=== PATIENT | male | born 1940 | race African-American/Black ===

== ENCOUNTER 2017-07-05 16:05 | Inpatient (IN) | payer MEDICARE, MEDICAID ==
[~2017-07-05 16:05] MED LIST: ISOVUE-370 76%-LOCM 1 ML ONE
[2017-07-05 16:35] LABS: #Lymphocytes 0.3 thou/uL (1.20-3.40); #Monocytes 0.2 thou/uL (0.11-0.59); #Neutrophils 5.9 thou/uL (1.40-6.50); %Eosinophils 0.4 % (0.0-10.0); %Monocytes 3.5 % (0.0-10.0); %Neutrophils 91.1 % (42.0-75.0); Hemoglobin 15.2 g/dL (14.0-18.0); Mean Corpuscular HGB CONC 30.8 g/dL (32.0-36.0); Mean Corpuscular Hemoglobin 24.6 pg (27.0-31.0); Mean Platelet Volume 10.2 fL (7.4-10.4); Platelet Count 204 thou/uL (130-400); Red Blood Cell (RBC) Count 6.18 mill/uL (4.70-6.10); White Blood Cell (WBC) Count 6.5 thou/uL (4.8-10.8)
[2017-07-05 16:39] LABS: Bilirubin Negative (Negative); Blood, Urine Moderate (Negative); Clarity CLEAR (Clear); Glucose, Urine (Dipstick) 250 mg/dL (Negative); Leukocyte Negative (Negative); Nitrite Negative (Negative); Protein, Urine (Dipstick) Trace mg/dL (Neg-Trace); Specific Gravity, Urine 1.014 (1.002-1.036); Urobilinogen 0.2 mg/dL (0.2-1.0)
[2017-07-05 16:41] LABS: Bacteria/HPF None Seen HPF (None Seen); Hyaline Casts/LPF 0-3 HYALINE CAST LPF (0-3 Hyaline); Pathc Cast-AUWi Flag 0.13 (0-2.49); RBC/HPF GREATER THAN 50-TNTC HPF (0-3); Squamous Epithelial 0-3 HPF (0-3); WBC/HPF 0-3 HPF (0-3)
[2017-07-05 16:44] LABS: Actual Bicarbonate (HCO3a) 25.9 mEq/L (22-26); CO2 Tension 51.9 mmHg (35.0-45.0); Hematocrit-ABG 48.7 % (42.0-52.0); Hemoglobin (Hb) 14.2 g/dL (14.0-18.0); O2 Tension (PaO2) 183.4 mmHg (80.0-100.0); pH, Arterial 7.32 (7.35-7.45)
[2017-07-05 16:45] LABS: ALV-art Gradient 108.225 (0-20); Analyzer IN Cardio ER; Calcium, Ionized 1.2 mmol/L (1.12-1.30); Puncture Site L.R.
[2017-07-05 16:49] LABS: Amphetamine Not Detected (NotDetected); Barbiturates Screen Not Detected (NotDetected); Benzodiazepine Screen Not Detected (NotDetected); Cocaine Metabolite Screen Not Detected (NotDetected); Medtox Control Line Valid? VALID (VALID); Medtox Reader # READER 1; Methadone Not Detected (NotDetected); Methamphetamine Not Detected (NotDetected); Opiate Screen Not Detected (NotDetected); Oxycodone Screen Not Detected (NotDetected); Phencyclidine (PCP) Not Detected (NotDetected); THC/Cannabinoid Screen Not Detected (NotDetected); Tricyclic Screen Not Detected (NotDetected)
--- NOTE | 2017-07-05 16:51 | CT ---
NONCONTRAST CT HEAD: Date: 07-05-17 History: Trauma. Patient found down for unknown reason. Comparison: None available. FINDINGS: There is a large area of increased density seen in the cerebellar hemispheres bilaterally, eccentrica lly located to the left measuring 6.5 cm transverse x 4.1 cm AP. This increased density also extends into the region of the fourth ventricle as well as the third ventricle and in the dependent portion o f the occipital horn of the left lateral ventricle consistent with intraventricular extension of hemo rrhage. There is adjacent decreased density surrounding the hemorrhage consistent with edema with mas s effect on the cerebellar folia. In addition, the basilar cisterns are unable to be visualized sugge sting transtentorial herniation. There is also diminished attenuation of the sergio which could be rela surya to developing infarction involving the sergio. There is also mass effect on the mid brain and medul lae due to the hemorrhage and mass effect. There is increased density seen within the middle cerebral arteries bilaterally. While this is a symm etric finding, hyperdense MCA could be attributable to developing thrombus within the middle cerebral arteries although this cannot be confirmed based on this exam. There is evidence of hydrocephalus which is probably related to obstructive hydrocephalus due to hemo rrhage within the region of the fourth ventricle and well as the third ventricle. There is diminished attenuation of the periventricular white matter which is nonspecific but likely r eflective of chronic small vessel ischemic changes. Endotracheal tube is noted in place. In addition, a nasogastric tube is noted in place, but the nasog astric tube is coiled within the oropharynx. Calvarial structures appear intact and no obvious fracture is appreciated. Mucous retention cysts are present in the left maxillary antrum with mucosal thickening of the right maxillary antrum. IMPRESSION: 1. Parenchymal hemorrhage cerebellar hemispheres with intraventricular extension of the hemorrhage an d resultant obstructive hydrocephalus. In addition there is obliteration of the basilar cisterns sugg esting transtentorial herniation. 2. The sergio appears to demonstrate diminished attenuation which could be related to either infarction or developing infarction involving the sergio. In addition, there is increased density involving the m iddle cerebral arteries bilaterally. While this is a symmetric finding and likely within normal limit s for the patient, hyperdense MCA sign can be seen with thrombus within the middle cerebral arteries. Valenzuela-white differentiation in the middle cerebral artery distributions, however, is preserved. 3. Mass effect on the medulla and portion of the midbrain. 4. Above findings discussed with Dr. Aguayo in the Emergency Department on 07-05-17 at 1635 hours. C TA brain may be helpful for further evaluation. POS: [facility]
[2017-07-05 16:54] LABS: INR-International Normal Ratio 1.1; Prothrombin Time 14.3 SEC (12.0-14.7)
[2017-07-05 16:55] LABS: PTT 27.5 SEC (22.9-36.1)
[2017-07-05] MEDS ORDERED: Acetaminophen 1,000 MG in Premix Bag 1 BAG IVPB SCH (17:00)
[2017-07-05 17:04] LABS: ALT (SGPT) 10 U/L (8-55); AST (SGOT) 22 U/L (5-34); Alcohol Less than 10 mg/dL (Less than 10); Alkaline Phosphatase 78 U/L (40-150); Anion Gap 15 mmol/L (10-20); BUN (Urea Nitrogen) 12 mg/dL (8.4-25.7); CK (CPK) 311 U/L (30-200); Calc. Creatinine Clearance 0 mL/min (70-130); Calcium 8.9 mg/dL (7.8-10.44); Carbon Dioxide 22 mmol/L (23-31); Chloride 101 mmol/L (98-107); Estimated GFR-MDRD Greater than 90; Globulin 3.7 g/dL (2.4-3.5); Glucose 175 mg/dL (83-110); Lipase 4 U/L (8-78); Potassium 3.1 mmol/L (3.5-5.1); Protein, Total 7.7 g/dL (5.8-8.1); Sodium 135 mmol/L (136-145)
[2017-07-05] MEDS ORDERED: niCARdipine 20MG in NaCl 200 ML BAG IVPB PRN (17:06)
[2017-07-05] MEDS ORDERED: Labetalol HCl 100 MG/20 ML VIAL SLOW IVP PRN (17:06)
[2017-07-05] MEDS ORDERED: Ondansetron HCl/PF 4 MG/2 ML Vial IVP PRN (17:06)
[2017-07-05 17:08] LABS: Troponin I 0.033 ng/mL (< 0.028)
[2017-07-05 17:14] LABS: CKMB 6.9 ng/mL (0-6.6)
[2017-07-05] MEDS ORDERED: Sodium Chloride 0.9% 1,000 ML IV SCH (17:15)
--- NOTE | 2017-07-05 17:23 | RAD ---
PELVIS ONE VIEW: History: Trauma. 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 Mild narrowing of the pubic symphysis. Moderate deg enerative disease at both SI joints. There is contrast within the ureters bilaterally. Arambula catheter is present. There are phleboliths in the pelvis. Moderate vascular plaque of the femoral vessels. IMPRESSION: No displaced fracture of the pelvis. POS: [facility]
--- NOTE | 2017-07-05 17:28 | RAD ---
PORTABLE AP CHEST RADIOGRAPH: Date: 07-05-17 History: Patient found unresponsive. FINDINGS: Endotracheal tube is noted in place with tip overlying the T4 vertebral body, above the level of the moncho. Nasogastric tube is noted in place, the tip of which is not well seen but may actually termin ate overlying the distal esophagus. This should probably be advanced. The thoracic aorta does appear ectatic and tortuous. There is parenchymal opacity seen within the left midlung zone and left lung ba se which may be related to aspiration pneumonitis or pneumonia. The right lung is clear. Cardiac silh ouette and pulmonary vasculature are within normal limits. There is increased density overlying the r ight axillary region which has the appearance of contrast within venous structures. IMPRESSION: 1. Airspace pneumonitis versus pneumonia in the left midlung zone and left lung base. 2. Ectasia and tortuosity of the thoracic aorta. 3. Endotracheal tube noted in place and above the level of the moncho. 4. Nasogastric tube noted in place, the tip of which is not seen. The tip may terminate in the distal esophagus. Follow up views of the abdomen would be helpful for further evaluation. POS: [facility]
[2017-07-05] MEDS ORDERED: niCARdipine 20MG In NaCl 20 MG/200 ML BAG ONE (17:54)
--- NOTE | 2017-07-05 18:18 | CT ---
CTA CAROTID AND INTRACRANIAL CTA: History: Patient with intracranial hemorrhage. Technique: Contrast enhanced CTA is performed on a 3D workstation. 2D and 3D reconstructed images per formed on an independent 3D workstation. FINDINGS: Images demonstrate area of patchy density in the left upper and left lower lobes. There is calcification of the aorta. There is a nasogastric tube in place. The mid portion is coiled within the hypopharynx. The patient is intubated. The aortic arch is unremarkable. The right and left common carotid arteries are patent. There is some tortuosity in the distal right CCA. INTRACRANIAL CTA: Flow is seen in the left vertebral artery. No evidence of flow seen in the right vertebral artery mor e distally. There is minimal flow in the proximal right vertebral artery. Intracranial CTA demonstrates asymmetric blood flow and density to the right and left internal caroti d arteries. The left internal carotid artery is denser than the right. There may be a small area of f illing defect seen on the intracranial CTA in the cavernous and supraclinoid portions of the right IC A possibly representing dissection or some intraluminal clot. The ROWDY and MCA vessels are patent. Bot h right and left posterior cerebral arteries are patent. There also appears to be some heterogeneity in the intracranial portion of the left vertebral artery. This may represent minimal clot in the left vertebral artery distally as well. Extensive intracranial hemorrhage is seen. Please see accompanying CT diction of the brain. IMPRESSION: 1. No evidence of occlusion seen in the right or left ROWDY, MCA, or BRAKE RIDER vessels. There appears to be a symmetry density of the right and left distal ICAs. This may represent possible right distal ICA clot . 2. Possible subtle area of inter arterial heterogeneity in the distal left vertebral artery. This may also represent distal left vertebral clot. POS: [facility]
[2017-07-05] MEDS ORDERED: Sodium Chloride 0.9% 2,000 ML IV SCH (20:30)
[2017-07-05] MEDS ORDERED: Famotidine/PF 20 mg/2ml Vial SLOW IVP SCH (21:00)
[2017-07-05] MEDS ORDERED: Lorazepam 2 MG/ML VIAL SLOW IVP PRN (21:03)
[2017-07-05 22:15] VITALS: BP 74/57
[2017-07-05 22:24] VITALS: TEMP 92.1
[2017-07-06 00:21] VITALS: BMI 27.6
--- NOTE | 2017-07-06 02:17 | HP ---
Mr. Haas is a 77-year-old man found down today. He was down for an unknown period of time according to emergency personnel. He was a GCS of 3 at the scene according to emergency personnel and had no demonstrable neurologic function according to Eve Muniz PA-C and emergency room staff. A CT scan revealed a massive cerebellar hemorrhage extending from the cerebellar vermis into both hem ispheres with compression and hemorrhagic conversion of the medulla and brain stem. There was intrav entricular extension with hydrocephalus. IMPRESSION: Nonsurvivable cerebellar hemorrhage, presumably hypertensive. There are clearly no surg ical strategies here and I believe that given the futility of treatment, ventriculostomy is not warra nted. The patient was moved up to the ICU on a ventilator to give his family time to acclimate to the situa tion. He has gradually become hypotensive and I have discussed at length with his niece, who is his closest family member according to her, that aggressive and heroic medical measures would not be clarissa anted in this circumstance. She is in full agreement with this and we have agreed explicitly no ches t compressions, no electrical or chemical cardioversion, and no pressors. We will focus on comfort m easures only. She has requested to continue with mechanical ventilation until additional family memb ers can arrive, but she understands that the patient may not survive to this point. Appropriate orde rs were given to staff.
--- NOTE | 2017-07-06 06:47 | HP ---
HISTORY OF PRESENT ILLNESS: The patient is a 77-year-old -Israeli male with a past medical history of hypertension, BPH, who presents, per EMS, after being found unresponsive down in his home. It is unsure how long the patient had been down. He was last seen normal yesterday. GCS at the scene was 3. EMS report the patient had a short period of cardiac arrest, with short chest compressions for return of pulse. He was 82% on room air at the scene and was therefore intubated and given etomidate 30 mg, rocuronium 100 mg, Versed 2 mg prior to arrival. CT head done on arrival at the emergency department was notable for large posterior fossa intracranial hemorrhage with intraventricular extension and some ventriculomegaly. I saw the patient at the bedside in the emergency department. The trauma team was also at the bedside. His pupils were equal, small and nonreactive. He was not overbreathing the ventilator. He did not have a gag reflex. No reaction to stimulation. The history was limited and attained mostly via reports and old records. There is no family at the bedside. Reviewing the CT scan, this appears to be likely related to hypertensive rather than traumatic event and therefore trauma deferred care to Neurosurgery, critical care and hospitalist team. PAST MEDICAL HISTORY: Hypertension, BPH. PAST SURGICAL HISTORY: Eye surgery, TURP, bladder biopsy. FAMILY HISTORY: Noncontributory. SOCIAL HISTORY: The patient is a former smoker. ALLERGIES: No known drug allergies. REVIEW OF SYSTEMS: Per HPI. PHYSICAL EXAMINATION: VITAL SIGNS: Blood pressure is 147/123, respiratory rate is 12 on the ventilator, 100% on ventilator, pulse is 84. CONSTITUTIONAL: The patient is unresponsive, intubated and sedated. HEAD: There is a small area of bruising to left frontal region. EYES: Pupils are equal, 2 mm in size, nonreactive. ENT: Oral mucosa is pink and intact. Endotracheal tube is in place. RESPIRATORY: The patient is being mechanically ventilated. He is not overbreathing the vent. CARDIOVASCULAR: Regular rate and rhythm. MUSCULOSKELETAL: No obvious signs of trauma. Peripheral pulses are equal and symmetric. NEUROLOGIC: The patient is unresponsive, sedated, currently being mechanically ventilated. He does not have a gag reflex. He has no response to stimulation. ASSESSMENT AND PLAN: The patient appears to have acute large posterior fossa intracranial hemorrhage, likely related to hypertensive episode. We will plan to admit to the ICU for close monitoring and q.1 neuro checks. The head of the bed will be elevated to 30 degrees. It is unsure if the patient has been taking anticoagulants in the past, none will be given during his stay. We will plan to monitor the patient's blood pressure closely and I have ordered a Cardene drip. Critical care and the Hospitalist Service has also been consulted for assistance in patient's additional medical issues including ventilator management and additionally an elevated CK-MB. We will plan to repeat CT head in the morning for repeat evaluation of the intracranial hemorrhage. I have discussed this plan with Dr. Zimmerman, who is in agreement. Please reach out to Neurosurgery Service for additional questions or concerns. UNIQUE
[2017-07-06] MEDS ORDERED: Prevnar 13-Val Conj/PF 0.5 ML SYRINGE IM ONE (09:00)
[2017-07-06] MEDS ORDERED: FLU VACC TS2017-18 (>65YR) 0.5 ML SYRINGE IM ONE (09:00)
--- NOTE | 2017-07-06 13:17 | DS ---
ATTENDING PHYSICIAN: Dr. Corwin Zimmerman. DATE OF ADMISSION: 07/05/2017 DATE OF : 07/05/2017 SUMMARY: Patient was a 77-year-old -Spanish male who found down inside his home on . He was brought to the emergency evaluation with a GCS of 3 at that time with no demonstrabl e neurologic function. His CT scan on arrival revealed very large cerebellar hemorrhage extending in to the ventricular system with hydrocephalus. He was evaluated in the emergency department, intubate d prior to arrival. He had admitted to the ICU for further management. Patient was kept in the ICU on a ventilator, despite his very large nonfriable cerebellar hemorrhage, presumably hypertensive in nature, to give his family time to acclimate to the situation. He became more hypotensive throughout his course and Dr. Zimmerman discussed the patient's dire situation with the family, and it was decid ed to make him DNR. He remained on the ventilator until family could arrive and at that time, they d ecided collectively to withdraw care. Patient was extubated at 2310 by respiratory therapy. Patient passed peacefully at 2348 with his family at the bedside. He was pronounced by the RN. His body wa s released to the home. Please reach out to the Neurosurgery Service for additional question s or concerns.
--- NOTE | 2017-07-09 14:12 | PQF ---
SAGE ESCALANTE JONATHAN A MD [id number] CLINICAL DOCUMENTATION CLARIFICATION FORM: POST DISCHARGE Addendum to original discharge summary date: 07/07/2017 DATE: 07/09/2017 ATTN: Dr. Zimmerman Please exercise your independent, professional judgment in responding to the clarification form. Clinical indicators are provided on the bottom of this form for your review Please check appropriate box(s): [ ] Acute Respiratory Failure: [ ] with Hypoxia[ ] with Hypercapnia [ ] Acute Respiratory Failure due to: (etiology) [ ] Other diagnosis (please specify) [ ] Unable to determine In addition, please specify: Present on Admission (POA): [ ] Yes [ ] No [ ] Unable to determine For continuity of documentation, please document condition throughout progress notes and discharge summary. Thank You. CLINICAL INDICATORS - SIGNS / SYMPTOMS / LABS Per labs: ABG pH 7.32. Per ED record. O2 sat 82% on RA. Per labs: ABG PCO2 51.9. Per labs: ABG PO2: 183.4. RISK FACTORS Per H&P: Massive cerebellar hemorrhage extending from the cerebellar vermis into both hemispheres with compression and hemorrhagic conversion of the medulla and brain stem. TREATMENTS:(per progress notes/labs) Mechanical ventilation. ABGs. (This form is maintained as a part of the permanent medical record) 2014 [employer], [employer]. All Rights Reserved Ethel [email or web address] [phone] MTDD
--- NOTE | 2017-07-10 14:30 | EKG ---
Test Reason : Blood Pressure : / mmHG Vent. Rate : 087 BPM Atrial Rate : 087 BPM P-R Int : 200 ms QRS Dur : 092 ms QT Int : 430 ms P-R-T Axes : 076 078 037 degrees QTc Int : 517 ms Normal sinus rhythm Prolonged QT Abnormal ECG Confirmed by FALLON JOE, SHONNA ([id number]), editorial manager FARRUKH ELIZABETH ([id number]) on 07/10/2017 2:30:16 PM Referred By: Confirmed By:SHONNA LEHMAN MD
== END 2017-07-05 23:48 | disposition expired | DRG 64 ==
LOC: ERS 16:05 → CCU 17:03
PROVIDERS: ADMIT Surgery; ATTEND Surgery
PROC: 5A1935Z Respiratory Ventilation, Less than 24 Consecutive Hours (ICD-10-PCS; principal; 2017-07-05)
DX: I61.4 Nontraumatic intracerebral hemorrhage in cerebellum (principal); G93.5 Compression of brain; R40.2112 Coma scale, eyes open, never, at arrival to emergency department; R40.2312 Coma scale, best motor response, none, at arrival to emergency department; R40.2212 Coma scale, best verbal response, none, at arrival to emergency department; I95.9 Hypotension, unspecified; G91.9 Hydrocephalus, unspecified; I10 Essential (primary) hypertension; N40.0 Benign prostatic hyperplasia without lower urinary tract symptoms; I61.3 Nontraumatic intracerebral hemorrhage in brain stem; Z51.5 Encounter for palliative care; Z66 Do not resuscitate; Z87.891 Personal history of nicotine dependence; Z79.899 Other long term (current) drug therapy
CPT/HCPCS: 36415; 51702; 70450; 70496; 70498; 71045; 72170; 80053; 80306; 80307; 81003; 81015; 82553; 82805; 83605; 83690; 83874; 83880; 84484; 85025; 85610; 85730; 86850; 86900; 86901; 87040; 87086; 90471; 90682; 93005; 94002; 96361; 96365; 96374; G0008; J0131; Q2036